=== PATIENT | female | born 1955 | race Caucasian/White ===

== ENCOUNTER 2021-01-08 11:27 | Day surgery (SDC) | payer OTHER ==
[~2021-01-08] VITALS: Ht 160 cm; Wt 92.1 kg
[~2021-01-08 11:27] MED LIST: ATOR40TA PO; C COMPLEX1000 M1 PO; FLUT.05NI; FOLI1 PO; GEMF600 PO; LISI20 PO; METFORMIN HCL500 MG PO; PSEU120ER PO; SUPER B COMPLEX PO; VITAMIN D310 MC4 PO; ZINC15 PO; ZYRTEC10 M2 PO; [UNRECOGNIZED DRUG - OTHER] PO
--- NOTE | 2021-01-08 19:19 | NUR ---
SHIFT SUMMARY PT ARRIVED TO THE ROOM POST-OP AT APPROXIMATELY 1715. PT DROWSY BUT AWAKENS TO VOICE, SHE IS ORIENTED. PT HAS DENIED PAIN. SHE WAS NAUSEATED UPON ARRIVAL TO THE ROOM, NO VOMITING. PT ATTEMPTED TO EAT DINNER BUT UNABLE TO TOLERATE. PT REMAINS ON 2L O2, DECREASED FROM 3L. NO FURTHER CHANGES TO REPORT. VSS. REPORT GIVEN TO MEDINA ISAAC.
--- NOTE | 2021-01-08 22:00 | NUR ---
ASSISTED TO [facility] USING WALKER, GAIT BELT, AND STAFF ASSISTANCE X3. VOIDED 300ML CLEAR STRONG SENTED CLEAR YELLOW URINE. TOLERATED GETTING BACK INTO WELL. MEDICATED FOR PAIN OF 3/10. SHE WAS JUST STARTING TO GET SENSATION BACK. DENIES FURTHER NEEDS OR WANTS AT THIS TIME. SAFETY MEASURES IN PLACE. WILL CONTINUE TO MONITOR AND ADDRESS NEEDS THEY ARISE.
[2021-01-09 04:42] LABS: BASOPHILS ABSOLUTE AUTO 0.01 K/mm3 (0.00-0.23); BASOPHILS PERCENT AUTO 0 % (0-2); EOSINOPHILS PERCENT AUTO 0 % (0-6); Hematocrit 34.2 % (33.0-51.0); Hemoglobin 11.3 g/dL (11.5-16.0); IMMATURE GRAN ABSOLUTE AUTO 0.05 K/mm3 (0.00-0.10); IMMATURE GRAN PERCENT AUTO 0 % (0-1); LYMPHOCYTES ABSOLUTE AUTO 0.91 K/mm3 (0.84-5.20); LYMPHOCYTES PERCENT AUTO 8 % (21-46); MONOCYTES ABSOLUTE AUTO 0.19 K/mm3 (0.16-1.47); MONOCYTES PERCENT AUTO 2 % (4-13); Mean Corpuscular Volume 85 fL (80-100); Mean Platelet Volume 10.3 fL (9.1-12.4); NEUTROPHILS ABSOLUTE AUTO 10.76 K/mm3 (1.96-9.15); NEUTROPHILS PERCENT AUTO 90 % (41-73); Platelet Count 301 K/mm3 (150-400); RDW Coefficient Variation 12.5 % (11.7-14.2); RDW Standard Deviation 37.7 fL (35.1-46.3); Red Blood Cell Count 4.04 M/mm3 (3.80-5.20); White Blood Cell Count 11.92 K/mm3 (4.00-11.30)
[2021-01-09 05:00] LABS: Anion Gap 5 mmol/L (6-16); Blood Urea Nitrogen 11 mg/dL (8-24); CO2, Blood 27 mmol/L (21-32); Calcium, Blood 8.9 mg/dL (8.5-10.1); Chloride, Blood 106 mmol/L (98-108); Creatinine, Blood 0.48 mg/dL (0.40-1.00); Glomerular Filtration Rate >60 (60-); Glucose, Blood 154 mg/dL (70-99); Magnesium, Blood 1.8 mg/dL (1.6-2.4); Potassium, Blood 4.3 mmol/L (3.5-5.5); Sodium, Blood 138 mmol/L (136-145)
--- NOTE | 2021-01-09 05:29 | NUR ---
RESTING WELL IN SEMI FOWLERS WITH EYES CLOSED, NO CHANGES SINCE START OF SHIFT. MEDICATED FOR PAIN X2 PER EMAR, TOLERATED WELL. AQUACEL DRESSING TO RLE REMAINS C/D/I. POLAR CARL, VIK'S, AND SCD'S IN PLACE. HAS AMBULATED TO [facility] [place] WITH FWW AND GAIT BELT MULTIPLE TIMES, TOLERATING WELL. DENIES FURTHER NEEDS OR WANTS AT THIS TIME. SAFETY MEASURES IN PLACE. WILL CONTINUE TO MONITOR AND ADDRESS NEEDS THEY ARISE. WILL GIVE HAND OFF TO ONCOMING SHIFT USING SBAR DURING BEDSIDE REPORT.
[2021-01-09] MEDS ORDERED: ACET500 PO (10:16)
[2021-01-09] MEDS ORDERED: OXYC5 (10:17)
[2021-01-09] MEDS ORDERED: ASPI81CH PO (10:17)
--- NOTE | 2021-01-09 14:48 | NUR ---
PATIENT DISCHARGED, DISCHARGE INSTUCTIONS GIVEN TO PATIENT AND AND THEY VERBALIZED UNDERSTANDING OF DISCHARGE INSTRUCTIONS. IV REMOVED.
== END 2021-01-09 14:38 | disposition home or self-care (01) ==
LOC: ORSCMMR 11:27 → ORD 13:00 → ORSCMMR 14:15 → SURS 17:22 → ORSCMMR 01-09 14:38
PROVIDERS: Orthopaedic Surgery
PROC: 8E0Y0CZ Robotic Assisted Procedure of Lower Extremity, Open Approach (ICD-10-PCS; principal; 2021-01-08 14:15)
PROC: 0SRD0JA Replacement of Left Knee Joint with Synthetic Substitute, Uncemented, Open Approach (ICD-10-PCS; principal; 2021-01-08 14:15)
DX: M17.12 Unilateral primary osteoarthritis, left knee (principal); E11.9 Type 2 diabetes mellitus without complications; I10 Essential (primary) hypertension; G47.33 Obstructive sleep apnea (adult) (pediatric); K21.9 Gastro-esophageal reflux disease without esophagitis; Z87.891 Personal history of nicotine dependence; F41.8 Other specified anxiety disorders; E66.01 Morbid (severe) obesity due to excess calories; Z68.36 Body mass index [BMI] 36.0-36.9, adult; Z79.84 Long term (current) use of oral hypoglycemic drugs; Z79.899 Other long term (current) drug therapy
CPT/HCPCS: 27447; S2900; 36415; 73560-LT; 80048; 82947; 83735; 85025; 97110; 97110-CQ; 97116; 97116-CQ; 97162; 97530-CQ; A9270; C1776; J0171; J0690; J0735; J1100; J1815; J1885; J2250; J2405; J2550; J2795; J3010; J7120

== ENCOUNTER 2021-08-23 10:57 | Day surgery (SDC) | payer OTHER ==
[~2021-08-23] VITALS: Ht 160 cm; Wt 92.5 kg
[~2021-08-23 10:57] MED LIST changes: +ACET500 PO; +ASPI81CH PO; +MAGNESIUM PO; +NAPR500 PO; +OMEGA 3 KRILL OIL PO; +OXYC5; +ROPI1 PO; +TURMERIC500 M2 PO; +ZANTAC PO; -[UNRECOGNIZED DRUG - OTHER] PO
--- NOTE | 2021-08-23 11:56 | NUR ---
PT HAS FOUR INCISION SITES ON ABDOMEN THAT AREA ALL COVERED WITH STERISTRIPS. THE STERISTRIPS HAVE SCANT AMOUNT OF DRIED SEROSANGUINEOUS MATERIAL ON THEM, BUT ARE OTHERWISE DRY AND INTACT.
[2021-08-24 05:15] LABS: BASOPHILS ABSOLUTE AUTO 0.01 K/mm3 (0.00-0.23); BASOPHILS PERCENT AUTO 0 % (0-2); EOSINOPHILS PERCENT AUTO 0 % (0-6); Hematocrit 32.6 % (33.0-51.0); Hemoglobin 10.8 g/dL (11.5-16.0); IMMATURE GRAN ABSOLUTE AUTO 0.04 K/mm3 (0.00-0.10); IMMATURE GRAN PERCENT AUTO 0 % (0-1); LYMPHOCYTES PERCENT AUTO 7 % (21-46); MONOCYTES ABSOLUTE AUTO 0.36 K/mm3 (0.16-1.47); MONOCYTES PERCENT AUTO 3 % (4-13); Mean Corpuscular HGB 28.3 pg (26.0-34.0); Mean Corpuscular HGB Conc 33.1 g/dL (31.5-36.5); Mean Corpuscular Volume 86 fL (80-100); Mean Platelet Volume 9.9 fL (9.1-12.4); NEUTROPHILS PERCENT AUTO 90 % (41-73); Platelet Count 286 K/mm3 (150-400); RDW Coefficient Variation 12.7 % (11.7-14.2); RDW Standard Deviation 39.2 fL (35.1-46.3); Red Blood Cell Count 3.81 M/mm3 (3.80-5.20); White Blood Cell Count 13.51 K/mm3 (4.00-11.30)
[2021-08-24 05:38] LABS: Bun/Creatinine Ratio 29.7 (12.0-20.0); Calcium, Blood 8.8 mg/dL (8.5-10.1); Creatinine, Blood 0.47 mg/dL (0.40-1.00); Magnesium, Blood 1.9 mg/dL (1.6-2.4)
--- NOTE | 2021-08-24 05:47 | NUR ---
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 VSS. PT HAS TRANSPARENT DRESSING OVER SURGICAL INCISON IN R THIGH. DRESSING C/D/I. PT'S NERVE BLOCK WEARING OFF . SHE IS ABLE TO MOVE HER RIGHT LEG BUT STILL HAS LIMITED SENSATION IN IT. PT DENIED PAIN THROUGH MOST OF THE SHIFT. SHE IS VOIDING AND ABLE TO AMBULATE TO THE BATHROOM WITH A STAND BY ASSIST. NO OTHER ACUTE CHANGES THIS SHIFT.
[2021-08-24] MEDS ORDERED: OXYC5 PO (07:33)
[2021-08-24] MEDS ORDERED: NAPR220 PO (09:39)
[2021-08-24] MEDS ORDERED: ACET500 PO (09:40)
[2021-08-24] MEDS ORDERED: ASPI81CH PO (10:16)
--- NOTE | 2021-08-24 12:18 | NUR ---
DISCHARGE PT WAS DISCHARGED WITH FAMILY VIA CAR. PT IN AGREEMENT WITH DISCHARGE PLAN. PT WORKED WITH PT BEFORE DISCHARGE. AMBULATING WITH SBA AND FWW. TOLERATING PO INTAKE AND VOIDING.
--- NOTE | 2021-08-24 14:36 | NUR ---
08/24/21 1436 Janette Fitzpatrick VERIFICATIONS: EDIT CHART.
== END 2021-08-24 10:35 | disposition home or self-care (01) ==
LOC: ORSCMMR 10:57 → ORD 12:30 → ORSCMMR 12:30 → SURS 15:16 → ORSCMMR 08-24 10:35
PROVIDERS: Orthopaedic Surgery
PROC: 8E0Y0CZ Robotic Assisted Procedure of Lower Extremity, Open Approach (ICD-10-PCS; principal; 2021-08-23 12:30)
PROC: 0SRC0JA Replacement of Right Knee Joint with Synthetic Substitute, Uncemented, Open Approach (ICD-10-PCS; principal; 2021-08-23 12:30)
DX: M17.11 Unilateral primary osteoarthritis, right knee (principal); Z96.652 Presence of left artificial knee joint; E66.9 Obesity, unspecified; Z68.36 Body mass index [BMI] 36.0-36.9, adult; F41.8 Other specified anxiety disorders; E11.9 Type 2 diabetes mellitus without complications; E78.5 Hyperlipidemia, unspecified; I10 Essential (primary) hypertension; K21.9 Gastro-esophageal reflux disease without esophagitis; Z87.891 Personal history of nicotine dependence; Z79.82 Long term (current) use of aspirin; Z79.899 Other long term (current) drug therapy; Z79.84 Long term (current) use of oral hypoglycemic drugs
CPT/HCPCS: 27447; S2900; 36415; 73560-RT; 80048; 83735; 85025; 97110; 97116; 97162; 97530; A9270; C1776; J0171; J0690; J0735; J1100; J1885; J2250; J2405; J2704; J2765; J2795; J3010; J7120

== ENCOUNTER → 2023-04-21 | Outpatient (CLI) | payer OTHER ==
[~2023-04-21] MED LIST changes: +NAPR220 PO; +OXYC5 PO
== END | disposition home or self-care (01) ==
LOC: LAB 07:56 → LAB SHORT 07:56
DX: K13.4 Granuloma and granuloma-like lesions of oral mucosa (principal)
CPT/HCPCS: 88305; 88312

== ENCOUNTER 2025-01-12 10:29 | Day surgery (SDC) | payer MEDICARE ==
[~2025-01-12] VITALS: Ht 157.5 cm; Wt 95.5 kg
[~2025-01-12 10:29] MED LIST changes: +Balanced Salt Epinephrine Irrigation Solution 500 mL IR SCH; +Moxifloxacin HCL 0.5 MG/0.1 ML 0.4MLSYR LEFTEYE SCH; +Ondansetron 4 MG SoluTab MM PRN; +PHENYLEPHRINE\\TROPICAMIDE\\TETRACAINE OPHTHALMIC DILATING SOLN LEFTEYE PRN; +Povidone-Iodine 450 DROP/30 ML Solution LEFTEYE SCH; +Povidone-Iodine 450 DROP/30 ML Solution ONE; +Tetracaine HCl/Pf 0.5% Opth Soln 4 ml ONE
--- NOTE | 2025-01-12 11:15 | NUR ---
01/12/25 1115 Akila Pinon 1109: PO VALIUM 10 MG GIVEN BY PONCHO COLÓN. PULSE OX ON FINGER, CALL LIGHT IN HAND. INITIAL ANX 08/07 PER PATIENT REPORT. 1110: TETRACAINE PER ORDERS. 1111: PLEGET PER ORDERS.
[2025-01-12] MEDS ORDERED: Tetracaine HCl 0.5% Opth Soln 15 ml ONE (11:19)
--- NOTE | 2025-01-12 11:56 | NUR ---
01/12/25 1156 Mayra Medina 1153 BP:151/64 HR:58 O2:99% RESP:16
[2025-01-12 12:10] VITALS: BP 157/68
== END 2025-01-12 12:32 | disposition home or self-care (01) ==
LOC: ORSCSDS 10:29
PROVIDERS: Student in an Organized Health Care Education/Training Program
PROC: 08RK3JZ Replacement of Left Lens with Synthetic Substitute, Percutaneous Approach (ICD-10-PCS; principal; 2025-01-12 12:00)
DX: E11.36 Type 2 diabetes mellitus with diabetic cataract (principal); H25.813 Combined forms of age-related cataract, bilateral; Z87.891 Personal history of nicotine dependence; I10 Essential (primary) hypertension; E78.5 Hyperlipidemia, unspecified; F32.A Depression, unspecified; F41.9 Anxiety disorder, unspecified; K21.9 Gastro-esophageal reflux disease without esophagitis; Z79.82 Long term (current) use of aspirin; Z79.84 Long term (current) use of oral hypoglycemic drugs; Z79.899 Other long term (current) drug therapy
CPT/HCPCS: A9270; V2632

== ENCOUNTER 2025-01-19 11:16 | Day surgery (SDC) | payer MEDICARE ==
[~2025-01-19] VITALS: Ht 160 cm; Wt 95.9 kg
[~2025-01-19 11:16] MED LIST changes: -Moxifloxacin HCL 0.5 MG/0.1 ML 0.4MLSYR LEFTEYE SCH; +Moxifloxacin HCL 0.5 MG/0.1 ML 0.4MLSYR RIGHTEYE SCH; -PHENYLEPHRINE\\TROPICAMIDE\\TETRACAINE OPHTHALMIC DILATING SOLN LEFTEYE PRN; +PHENYLEPHRINE\\TROPICAMIDE\\TETRACAINE OPHTHALMIC DILATING SOLN RIGHTEYE PRN; -Povidone-Iodine 450 DROP/30 ML Solution LEFTEYE SCH; +Povidone-Iodine 450 DROP/30 ML Solution RIGHTEYE SCH
[2025-01-19] MEDS ORDERED: KRILL OIL500 MG PO (12:35)
--- NOTE | 2025-01-19 12:59 | NUR ---
01/19/25 1259 EDWAR NOBLE DENIES ANXIETY AT THIS TIME. CALL LIGHT IN REACH.
--- NOTE | 2025-01-19 13:20 | NUR ---
01/19/25 1320 Kimberly Stern BP 149/66 59 100% 18
--- NOTE | 2025-01-19 13:24 | NUR ---
01/19/[address] AT BEDSIDE
[2025-01-19 13:26] VITALS: BP 130/60
== END 2025-01-19 13:39 | disposition home or self-care (01) ==
LOC: ORSCSDS 11:16
PROVIDERS: Student in an Organized Health Care Education/Training Program
PROC: 08RJ3JZ Replacement of Right Lens with Synthetic Substitute, Percutaneous Approach (ICD-10-PCS; principal; 2025-01-19 13:30)
DX: E11.36 Type 2 diabetes mellitus with diabetic cataract (principal); H25.811 Combined forms of age-related cataract, right eye; Z96.1 Presence of intraocular lens; I10 Essential (primary) hypertension; E78.5 Hyperlipidemia, unspecified; Z87.891 Personal history of nicotine dependence; F41.9 Anxiety disorder, unspecified; F32.A Depression, unspecified; K21.9 Gastro-esophageal reflux disease without esophagitis; Z79.82 Long term (current) use of aspirin; Z79.84 Long term (current) use of oral hypoglycemic drugs; Z79.899 Other long term (current) drug therapy
CPT/HCPCS: A9270; V2632